=== PATIENT | male | born 1945 | race Caucasian/White ===

== ENCOUNTER 2021-03-14 13:10 | Outpatient (CLI) | payer MEDICARE | END 2021-03-14 13:11 | disposition home or self-care (01) | LOC: CSHCT 13:10 | PROVIDERS: ATTEND Surgery | DX: R91.8 Other nonspecific abnormal finding of lung field (principal); J98.4 Other disorders of lung; I25.10 Atherosclerotic heart disease of native coronary artery without angina pectoris; I25.84 Coronary atherosclerosis due to calcified coronary lesion | CPT/HCPCS: 71250 ==

== ENCOUNTER 2025-05-04 20:30 | Observation (INO) | payer MEDICARE ==
[2025-05-04 21:32] LABS: #Basophils Less than 0.03 10x3/uL (0.0-0.2); #Eosinophils 0.28 10x3/uL (0.0-0.5); #Monocytes 1.63 10x3/uL (0.0-1.1); #Neutrophils 7.47 10x3/uL (1.5-8.4); %Basophils 0.2 % (0.0-2.0); %Eosinophils 2.7 % (0.0-6.0); %Lymphocytes 7.6 % (18.0-47.0); %Monocytes 15.9 % (0.0-10.0); %Neutrophils 73.1 % (40.0-75.0); Hematocrit 24.3 % (38.8-50.0); Hemoglobin 8.4 g/dL (13.5-17.5); Mean Corpuscular Hemoglobin 28.9 pg (27.0-33.0); Mean Corpuscular Volume 83.5 fL (81.2-95.1); Platelet Count 452 10x3/uL (150-450); Red Blood Cell (RBC) Count 2.91 10x6/uL (4.32-5.72); White Blood Cell (WBC) Count 10.23 10x3/uL (3.5-10.5)
[2025-05-04 21:49] LABS: ALT (SGPT) 14 U/L (Less than 45); AST (SGOT) 23 U/L (11-34); Albumin 2.0 g/dL (3.1-4.5); Alkaline Phosphatase 84 U/L (40-110); Anion Gap 11 mmol/L (10-20); BUN (Urea Nitrogen) 16 mg/dL (8.4-25.7); Bilirubin, Total 0.5 mg/dL (0.3-1.2); Calc. Creatinine Clearance 0 mL/min (70-130); Calcium 8.6 mg/dL (7.8-10.44); Carbon Dioxide 25 mmol/L (23-31); Chloride 104 mmol/L (98-107); Globulin 3.7 g/dL (2.4-3.5); Glucose 90 mg/dL (83-110); Potassium 3.5 mmol/L (3.5-5.1); Sodium 136 mmol/L (136-145)
[2025-05-05] MEDS ORDERED: Acetaminophen 325 MG TAB PO PRN (02:10)
[2025-05-05 04:05] VITALS: BMI 20.5
[2025-05-05] MEDS: Scopolamine 1 mg/72 hour Patch TD SCH (06:27)
[2025-05-05] MEDS: Acetaminophen 325 MG TAB PO SCH (06:59)
[2025-05-05] MEDS: Ketorolac Tromethamine 30 MG (1 mL) VIAL IVP PRN (07:33)
[2025-05-05 12:15] VITALS: BP 137/63; TEMP 98.4
[2025-05-05] MEDS: Ketorolac Tromethamine 30 MG (1 mL) VIAL IVP SCH (14:11)
== END 2025-05-05 14:46 | disposition hospice, home (50) ==
LOC: CSHERS 20:30 → CSHTELE 05-05 02:10
PROVIDERS: ADMIT Student in an Organized Health Care Education/Training Program; ATTEND Internal Medicine
DX: K63.89 Other specified diseases of intestine (principal); I10 Essential (primary) hypertension; Z87.891 Personal history of nicotine dependence; Z95.0 Presence of cardiac pacemaker; Z85.048 Personal history of other malignant neoplasm of rectum, rectosigmoid junction, and anus; Z90.49 Acquired absence of other specified parts of digestive tract; Z88.5 Allergy status to narcotic agent
CPT/HCPCS: 80053; 85025; 93005; 94760; 94762; 96374; 96375; G0378 ×2; J1885; J2060; J2919